=== PATIENT | female | born 1945 | race Caucasian/White ===

== ENCOUNTER 2021-09-25 16:32 | Inpatient (IN) | payer MEDICARE ==
[2021-09-25 16:59] LABS: Hemoglobin 14.3 g/dL (12.0-16.0); Mean Corpuscular Hemoglobin 30.5 pg (27.0-31.0); Mean Corpuscular Volume 95.3 fL (78.0-98.0); Mean Platelet Volume 6.7 fL (7.4-10.4); Platelet Count 273 thou/uL (130-400); RBC Distribution Width 13.3 % (11.5-14.5); White Blood Cell (WBC) Count 5.8 thou/uL (4.8-10.8)
[2021-09-25] MEDS ORDERED: Fentanyl 100 MCG/2 ML VIAL ONE (17:09)
[2021-09-25] MEDS ORDERED: Lorazepam 2 MG/ML VIAL ONE (17:09)
[2021-09-25 17:11] LABS: Actual Bicarbonate (HCO3a) 12.5 mEq/L (22-28); Analyzer IN Cardio ER; Base Excess (BEa) -13.1 mEq/L (-2.0 to +3.0); CO2 Tension 28.9 mmHg (35.0-45.0); Calcium, Ionized (arterial) 1.16 mmol/L (1.12-1.30); Carboxyhemoglobin (COHb) 0.2 gm% (0.0-3.0); Hemoglobin (Hb) 14.1 g/dL (12.0-16.0); O2 Tension (PaO2), arterial 355.5 mmHg (> 70.0); Potassium - ABG Lab 3.81 mmol/L (3.70-5.30)
[2021-09-25 17:12] LABS: ALV-art Gradient 321.375 mmHg (0-20); Puncture Site RRA; pH, Arterial 7.25 (7.35-7.45)
[2021-09-25 17:15] LABS: Band 25 % (5-11); Lymphocytes 16 % (21-51); MDiff Complete? YES; Metamyelocyte 1 % (0-0); Monocytes 25 % (0-10); Neutrophil 29 % (42-75); Platelet Morphology Comment Appears Adequate; Polychromasia SLIGHT = 2-3 cells (100X) (0-2/hpf); Reactive Lymphocytes 4 % (0-10)
[2021-09-25 17:19] LABS: Acetaminophen Less than 6.0 mcg/mL (10.0-30.0); Alcohol Less than 10 mg/dL (Less than 10); Salicylate Less than 8.0 mg/dL (15.0-30.0)
[2021-09-25 17:22] LABS: ALT (SGPT) 32 U/L (8-55); AST (SGOT) 80 U/L (5-34); Albumin 3.6 g/dL (3.4-4.8); Alkaline Phosphatase 56 U/L (40-110); Anion Gap 24 mmol/L (10-20); BUN (Urea Nitrogen) 37 mg/dL (9.8-20.1); Bilirubin, Total 0.6 mg/dL (0.2-1.2); Calc. Creatinine Clearance 0 mL/min (70-130); Calcium 9.3 mg/dL (7.8-10.44); Carbon Dioxide 17 mmol/L (23-31); Chloride 104 mmol/L (98-107); Globulin 2.7 g/dL (2.4-3.5); Glucose 164 mg/dL (83-110); Lipase 8 U/L (8-78); Potassium 4.7 mmol/L (3.5-5.1); Protein, Total 6.3 g/dL (5.8-8.1); Sodium 140 mmol/L (136-145)
[2021-09-25 17:32] LABS: Bilirubin 1+ (Negative); Blood, Urine Negative (Negative); Clarity Turbid (Clear); Glucose, Urine (Dipstick) 30 mg/dL (Negative); Ketone, Urine Negative (Negative); Leukocyte Negative Leu/uL (Negative); Nitrite Negative (Negative); Protein, Urine (Dipstick) 100 mg/dL (Neg-Trace); Specific Gravity, Urine 1.021 (1.002-1.036); Squamous Epithelial 0-3 HPF (0-3)
[2021-09-25 17:36] LABS: Amphetamine Not Detected (NotDetected); Barbiturates Screen Not Detected (NotDetected); Benzodiazepine Screen Not Detected (NotDetected); Cocaine Metabolite Screen Not Detected (NotDetected); Methadone Not Detected (NotDetected); Methamphetamine Not Detected (NotDetected); Opiate Screen Not Detected (NotDetected); Oxycodone Screen Not Detected (NotDetected); Phencyclidine (PCP) Not Detected (NotDetected); THC/Cannabinoid Screen Not Detected (NotDetected); Tricyclic Screen Not Detected (NotDetected)
[2021-09-25] MEDS ORDERED: Fentanyl CADD 100 ML IV SCH (17:45)
[2021-09-25] MEDS ORDERED: Vancomycin 1 GM/200 ML BAG ONE (17:48)
[2021-09-25 17:58] LABS: CKMB 10.9 ng/mL (0-6.6)
[2021-09-25 18:00] LABS: Bacteria/HPF 1+ HPF (None Seen)
[2021-09-25 18:03] LABS: Renal Epithelial 0-3 HPF (None Seen)
[2021-09-25] MEDS ORDERED: Cefepime 2 GM VIAL ONE (18:06)
[2021-09-25] MEDS ORDERED: Ventilator Sedation Protocol 1 EACH FS SCH (18:45)
[2021-09-25 19:12] LABS: SARS-CoV-2 NAA Rapid Test Not Detected (NotDetected)
[2021-09-25] MEDS ORDERED: Propofol BOLUS 1,000 MG/100 ML VIAL IV PRN (19:30)
[2021-09-25] MEDS ORDERED: DISCONTINUE PREVIOUS NARCOTIC PAIN MEDICATIONS AND BENZODIAZEPINES FS SCH (19:30)
[2021-09-25] MEDS ORDERED: Dextrose 50% Abboject 50 ML SYRINGE IVP PRN (19:30)
[2021-09-25] MEDS ORDERED: Dextrose 5% in Water 1,000 ML IV PRN (19:30)
[2021-09-25] MEDS ORDERED: Morphine 2 MG/ML VIAL SLOW IVP PRN (19:30)
[2021-09-25] MEDS ORDERED: Fentanyl BOLUS 250 ML IVPB PRN (19:30)
[2021-09-25 20:05] LABS: Troponin I 0.046 ng/mL (< 0.028)
[2021-09-25] MEDS: Propofol 1,000 MG/100 ML VIAL IV PRN (20:49)
[2021-09-25] MEDS: Atorvastatin Calcium 40 MG TAB PO SCH ×2 (20:50→21:24)
[2021-09-26 00:01] LABS: Troponin I 0.046 ng/mL (< 0.028)
[2021-09-26] MEDS: Lorazepam 2 MG/ML VIAL SLOW IVP PRN (01:29)
[2021-09-26] MEDS ORDERED: Norepinephrine 8 MG/0.9% NS 250 ML IVPB SCH (02:30)
[2021-09-26] MEDS ORDERED: Sodium Chloride 0.9% 500 ML IV SCH (02:30)
[2021-09-26 04:41] LABS: Band 37 % (5-11); Hemoglobin 11.5 g/dL (12.0-16.0); Lymphocytes 20 % (21-51); MDiff Complete? YES; Mean Corpuscular Hemoglobin 30.8 pg (27.0-31.0); Mean Corpuscular Volume 96.2 fL (78.0-98.0); Monocytes 9 % (0-10); Neutrophil 34 % (42-75); Platelet Count 190 thou/uL (130-400); RBC Distribution Width 13.3 % (11.5-14.5); Red Blood Cell (RBC) Count 3.73 mill/uL (4.20-5.40); White Blood Cell (WBC) Count 7.1 thou/uL (4.8-10.8)
[2021-09-26 05:39] LABS: Actual Bicarbonate (HCO3a) 10.9 mEq/L (22-28); Base Excess (BEa) -14.3 mEq/L (-2.0 to +3.0); Calcium, Ionized (arterial) 1.12 mmol/L (1.12-1.30); Carboxyhemoglobin (COHb) 0.1 gm% (0.0-3.0); Hemoglobin (Hb) 11.7 g/dL (12.0-16.0); O2 Tension (PaO2), arterial 128.3 mmHg (> 70.0); Potassium - ABG Lab 4.34 mmol/L (3.70-5.30); pH, Arterial 7.27 (7.35-7.45)
[2021-09-26 05:44] LABS: CO2 Tension 24.5 mmHg (35.0-45.0)
[2021-09-26 05:45] LABS: ALV-art Gradient 126.275 mmHg (0-20); Puncture Site RBA
[2021-09-26] MEDS: Insulin Regular 300 UNITS/3 ML VIAL SC PRN (05:45)
[2021-09-26 06:45] LABS: ALT (SGPT) 25 U/L (8-55); AST (SGOT) 51 U/L (5-34); Albumin 2.9 g/dL (3.4-4.8); Alkaline Phosphatase 52 U/L (40-110); Anion Gap 25 mmol/L (10-20); BUN (Urea Nitrogen) 41 mg/dL (9.8-20.1); Bilirubin, Total 0.5 mg/dL (0.2-1.2); Calc. Creatinine Clearance 36 mL/min (70-130); Carbon Dioxide 11 mmol/L (23-31); Chloride 106 mmol/L (98-107); Globulin 2.9 g/dL (2.4-3.5); Glucose 226 mg/dL (83-110); Potassium 4.3 mmol/L (3.5-5.1); Protein, Total 5.8 g/dL (5.8-8.1); Sodium 138 mmol/L (136-145)
[2021-09-26] MEDS: Aspirin 81 mg Enteric Coated Tablet PO SCH (09:07)
[2021-09-26] MEDS: cefTRIAXone\\ROCEPHIN 2 GM in Sodium Chloride 0.9% 100 ML IVPB SCH (10:13)
[2021-09-26] MEDS ORDERED: Fentanyl 100 MCG/2 ML VIAL ONE (13:04)
[2021-09-26] MEDS ORDERED: Midazolam HCl 2 mg/2 ml Vial ONE (13:04)
[2021-09-26] MEDS ORDERED: PROPOFOL 0 ML ONE (13:08)
[2021-09-26] MEDS ORDERED: Rocuronium Bromide 10 MG/ML (10ML VIAL) ONE (13:29)
[2021-09-26] MEDS ORDERED: EPINEPHrine 1 MG/ML AMP ONE (13:38)
[2021-09-26] MEDS: Sodium Chloride 0.9% 1,000 ML IV SCH (14:30)
[2021-09-26] MEDS: Acetaminophen 325 MG TAB PO PRN (15:30)
[2021-09-26] MEDS ORDERED: Fentanyl CADD 100 ML ONE (17:34)
[2021-09-26] MEDS: Atorvastatin Calcium 40 MG TAB PO SCH (22:00)
[2021-09-27] MEDS: Sodium Chloride 0.9% 1,000 ML IV SCH ×2 (00:01→10:20)
[2021-09-27 04:24] LABS: ALT (SGPT) 22 U/L (8-55); AST (SGOT) 49 U/L (5-34); Albumin 2.4 g/dL (3.4-4.8); Alkaline Phosphatase 56 U/L (40-110); Anion Gap 22 mmol/L (10-20); BUN (Urea Nitrogen) 32 mg/dL (9.8-20.1); Bilirubin, Total 0.2 mg/dL (0.2-1.2); Calc. Creatinine Clearance 52 mL/min (70-130); Calcium 8.2 mg/dL (7.8-10.44); Carbon Dioxide 13 mmol/L (23-31); Chloride 111 mmol/L (98-107); Globulin 3.2 g/dL (2.4-3.5); Glucose 138 mg/dL (83-110); Potassium 4.8 mmol/L (3.5-5.1); Protein, Total 5.6 g/dL (5.8-8.1); Sodium 141 mmol/L (136-145)
[2021-09-27 04:48] LABS: Band 39 % (5-11); Eosinophils 1 % (0-10); Hemoglobin 10.3 g/dL (12.0-16.0); Lymphocytes 7 % (21-51); MDiff Complete? YES; Mean Corpuscular Hemoglobin 30.5 pg (27.0-31.0); Mean Corpuscular Volume 95.5 fL (78.0-98.0); Mean Platelet Volume 6.1 fL (7.4-10.4); Monocytes 7 % (0-10); Myelocyte 1 % (0-0); Neutrophil 45 % (42-75); Platelet Count 189 thou/uL (130-400); RBC Distribution Width 13.4 % (11.5-14.5); Red Blood Cell (RBC) Count 3.36 mill/uL (4.20-5.40)
[2021-09-27] MEDS: Aspirin 81 mg Enteric Coated Tablet PO SCH (08:59)
[2021-09-27] MEDS ORDERED: Pantoprazole 40 MG VIAL IVP SCH (09:00)
[2021-09-27] MEDS: cefTRIAXone\\ROCEPHIN 2 GM in Sodium Chloride 0.9% 100 ML IVPB SCH (09:10)
[2021-09-27] MEDS: methylPREDNISolone Sod Succ 40 MG VIAL IVP SCH (18:11)
[2021-09-27] MEDS: Atorvastatin Calcium 40 MG TAB PO SCH (21:35)
[2021-09-27] MEDS: Insulin Regular 300 UNITS/3 ML VIAL SC PRN (21:46)
[2021-09-27] MEDS: Lorazepam 2 MG/ML VIAL SLOW IVP PRN (22:48)
[2021-09-28] MEDS: methylPREDNISolone Sod Succ 40 MG VIAL IVP SCH ×5 (00:11→23:20)
[2021-09-28] MEDS: Lorazepam 2 MG/ML VIAL SLOW IVP PRN ×2 (00:47→23:20)
[2021-09-28] MEDS: Insulin Regular 300 UNITS/3 ML VIAL SC PRN ×4 (03:25→21:55)
[2021-09-28 04:10] LABS: Band 12 % (5-11); Hemoglobin 10.6 g/dL (12.0-16.0); Lymphocytes 4 % (21-51); MDiff Complete? YES; Mean Corpuscular HGB CONC 32.6 g/dL (32.0-36.0); Mean Corpuscular Hemoglobin 30.7 pg (27.0-31.0); Mean Corpuscular Volume 94.4 fL (78.0-98.0); Mean Platelet Volume 6.2 fL (7.4-10.4); Metamyelocyte 2 % (0-0); Monocytes 1 % (0-10); Myelocyte 7 % (0-0); Neutrophil 73 % (42-75); Platelet Count 216 thou/uL (130-400); Platelet Morphology Comment Appears Adequate; RBC Distribution Width 13.4 % (11.5-14.5); RBC Morphology Normal; Reactive Lymphocytes 1 % (0-10); Red Blood Cell (RBC) Count 3.44 mill/uL (4.20-5.40); White Blood Cell (WBC) Count 6.1 thou/uL (4.8-10.8)
[2021-09-28 04:24] LABS: ALT (SGPT) 21 U/L (8-55); AST (SGOT) 25 U/L (5-34); Albumin 2.6 g/dL (3.4-4.8); Alkaline Phosphatase 66 U/L (40-110); Anion Gap 19 mmol/L (10-20); BUN (Urea Nitrogen) 25 mg/dL (9.8-20.1); Bilirubin, Total 0.2 mg/dL (0.2-1.2); Calc. Creatinine Clearance 53 mL/min (70-130); Calcium 8.5 mg/dL (7.8-10.44); Carbon Dioxide 16 mmol/L (23-31); Chloride 113 mmol/L (98-107); Globulin 2.8 g/dL (2.4-3.5); Glucose 251 mg/dL (83-110); Potassium 4.3 mmol/L (3.5-5.1); Protein, Total 5.4 g/dL (5.8-8.1); Sodium 144 mmol/L (136-145)
[2021-09-28] MEDS: Pantoprazole 40 MG GRANULES PACKET PER TUBE SCH (09:01)
[2021-09-28] MEDS: Aspirin Chewable 81 MG TAB PO SCH (09:01)
[2021-09-28] MEDS: cefTRIAXone\\ROCEPHIN 2 GM in Sodium Chloride 0.9% 100 ML IVPB SCH (09:48)
[2021-09-28] MEDS: Atorvastatin Calcium 40 MG TAB PO SCH (21:54)
[2021-09-29] MEDS: Insulin Regular 300 UNITS/3 ML VIAL SC PRN ×4 (03:53→20:55)
[2021-09-29 04:11] LABS: Band 2 % (5-11); Hemoglobin 10.8 g/dL (12.0-16.0); Hypochromia SLIGHT = 6-15 cells (100X) (0-5/hpf); Lymphocytes 14 % (21-51); MDiff Complete? YES; Mean Corpuscular HGB CONC 33.6 g/dL (32.0-36.0); Mean Corpuscular Hemoglobin 31.1 pg (27.0-31.0); Mean Corpuscular Volume 92.6 fL (78.0-98.0); Mean Platelet Volume 6.1 fL (7.4-10.4); Monocytes 9 % (0-10); Neutrophil 75 % (42-75); Platelet Count 254 thou/uL (130-400); Platelet Morphology Comment Appears Adequate; RBC Distribution Width 13.5 % (11.5-14.5); Red Blood Cell (RBC) Count 3.49 mill/uL (4.20-5.40)
[2021-09-29 04:20] LABS: ALT (SGPT) 24 U/L (8-55); AST (SGOT) 25 U/L (5-34); Albumin 2.8 g/dL (3.4-4.8); Alkaline Phosphatase 92 U/L (40-110); Anion Gap 15 mmol/L (10-20); BUN (Urea Nitrogen) 40 mg/dL (9.8-20.1); Bilirubin, Total 0.3 mg/dL (0.2-1.2); Calc. Creatinine Clearance 43 mL/min (70-130); Calcium 9.1 mg/dL (7.8-10.44); Carbon Dioxide 23 mmol/L (23-31); Chloride 114 mmol/L (98-107); Globulin 2.9 g/dL (2.4-3.5); Glucose 354 mg/dL (83-110); Potassium 4.4 mmol/L (3.5-5.1); Protein, Total 5.7 g/dL (5.8-8.1); Sodium 148 mmol/L (136-145)
[2021-09-29] MEDS: methylPREDNISolone Sod Succ 40 MG VIAL IVP SCH ×2 (05:41→12:18)
[2021-09-29] MEDS: cefTRIAXone\\ROCEPHIN 2 GM in Sodium Chloride 0.9% 100 ML IVPB SCH (10:03)
[2021-09-29] MEDS: Pantoprazole 40 MG GRANULES PACKET PER TUBE SCH (10:03)
[2021-09-29] MEDS: Aspirin Chewable 81 MG TAB PO SCH (10:03)
[2021-09-29] MEDS: Atorvastatin Calcium 40 MG TAB PO SCH (20:54)
[2021-09-29] MEDS: Lantus 1000 UNITS/10 ML VIAL SC SCH (20:55)
[2021-09-29] MEDS: Acetaminophen 325 MG TAB PO PRN (20:56)
[2021-09-30] MEDS: Acetaminophen 325 MG TAB PO PRN ×3 (02:22→21:05)
[2021-09-30] MEDS: Insulin Regular 300 UNITS/3 ML VIAL SC PRN ×4 (04:08→21:08)
[2021-09-30 04:39] LABS: ALT (SGPT) 30 U/L (8-55); AST (SGOT) 33 U/L (5-34); Albumin 3.1 g/dL (3.4-4.8); Alkaline Phosphatase 92 U/L (40-110); Anion Gap 12 mmol/L (10-20); BUN (Urea Nitrogen) 38 mg/dL (9.8-20.1); Bilirubin, Total 0.4 mg/dL (0.2-1.2); Calc. Creatinine Clearance 57 mL/min (70-130); Calcium 9.3 mg/dL (7.8-10.44); Carbon Dioxide 30 mmol/L (23-31); Chloride 111 mmol/L (98-107); Globulin 2.7 g/dL (2.4-3.5); Glucose 215 mg/dL (83-110); Potassium 3.7 mmol/L (3.5-5.1); Protein, Total 5.8 g/dL (5.8-8.1); Sodium 149 mmol/L (136-145)
[2021-09-30 05:40] LABS: Band 15 % (5-11); Hemoglobin 10.6 g/dL (12.0-16.0); Lymphocytes 2 % (21-51); MDiff Complete? YES; Mean Corpuscular Hemoglobin 30.6 pg (27.0-31.0); Mean Corpuscular Volume 92.8 fL (78.0-98.0); Mean Platelet Volume 6.1 fL (7.4-10.4); Metamyelocyte 5 % (0-0); Monocytes 11 % (0-10); Myelocyte 5 % (0-0); Neutrophil 62 % (42-75); Platelet Count 275 thou/uL (130-400); Platelet Morphology Comment Appears Adequate; RBC Distribution Width 13.4 % (11.5-14.5); RBC Morphology Normal; Red Blood Cell (RBC) Count 3.47 mill/uL (4.20-5.40); White Blood Cell (WBC) Count 12.9 thou/uL (4.8-10.8)
[2021-09-30] MEDS: Aspirin Chewable 81 MG TAB PO SCH (09:45)
[2021-09-30] MEDS: cefTRIAXone\\ROCEPHIN 2 GM in Sodium Chloride 0.9% 100 ML IVPB SCH (09:45)
[2021-09-30] MEDS: Pantoprazole 40 MG GRANULES PACKET PER TUBE SCH (09:45)
[2021-09-30] MEDS: Atorvastatin Calcium 40 MG TAB PO SCH (21:05)
[2021-09-30] MEDS: Lantus 1000 UNITS/10 ML VIAL SC SCH (21:06)
[2021-10-01] MEDS: Insulin Regular 300 UNITS/3 ML VIAL SC PRN ×4 (03:15→20:44)
[2021-10-01 04:28] LABS: ALT (SGPT) 26 U/L (8-55); AST (SGOT) 33 U/L (5-34); Albumin 2.8 g/dL (3.4-4.8); Alkaline Phosphatase 104 U/L (40-110); Anion Gap 10 mmol/L (10-20); BUN (Urea Nitrogen) 31 mg/dL (9.8-20.1); Bilirubin, Total 0.4 mg/dL (0.2-1.2); Calc. Creatinine Clearance 67 mL/min (70-130); Calcium 8.9 mg/dL (7.8-10.44); Carbon Dioxide 33 mmol/L (23-31); Chloride 107 mmol/L (98-107); Globulin 2.5 g/dL (2.4-3.5); Glucose 191 mg/dL (83-110); Potassium 3.3 mmol/L (3.5-5.1); Protein, Total 5.3 g/dL (5.8-8.1); Sodium 147 mmol/L (136-145)
[2021-10-01] MEDS: Aspirin Chewable 81 MG TAB PO SCH (09:07)
[2021-10-01] MEDS: cefTRIAXone\\ROCEPHIN 2 GM in Sodium Chloride 0.9% 100 ML IVPB SCH (09:07)
[2021-10-01] MEDS: Pantoprazole 40 MG GRANULES PACKET PER TUBE SCH (09:07)
[2021-10-01] MEDS: Propofol 1,000 MG/100 ML VIAL IV PRN (11:32)
[2021-10-01 12:32] LABS: Hemoglobin 10.4 g/dL (12.0-16.0); Red Blood Cell (RBC) Count 3.49 mill/uL (4.20-5.40); White Blood Cell (WBC) Count 10.2 thou/uL (4.8-10.8)
[2021-10-01 12:33] LABS: Band 4 % (5-11); Lymphocytes 21 % (21-51); Mean Corpuscular Hemoglobin 29.7 pg (27.0-31.0); Mean Corpuscular Volume 92.7 fL (78.0-98.0); Mean Platelet Volume 6.3 fL (7.4-10.4); Neutrophil 60 % (42-75); Platelet Count 220 thou/uL (130-400); RBC Distribution Width 13.3 % (11.5-14.5)
[2021-10-01 12:34] LABS: Monocytes 15 % (0-10)
[2021-10-01 12:35] LABS: MDiff Complete? YES
[2021-10-01] MEDS ORDERED: Lantus 1000 UNITS/10 ML VIAL SC SCH (13:37)
[2021-10-01] MEDS: Clindamycin/D5W 600 MG in Premix Bag 1 BAG IVPB SCH ×2 (16:59→21:23)
[2021-10-01] MEDS: Atorvastatin Calcium 40 MG TAB PO SCH (20:45)
[2021-10-02] MEDS ORDERED: Morphine 4 MG/ML VIAL SLOW IVP PRN (01:07)
[2021-10-02] MEDS: Clindamycin/D5W 600 MG in Premix Bag 1 BAG IVPB SCH ×4 (03:08→20:37)
[2021-10-02 04:54] LABS: ALT (SGPT) 24 U/L (8-55); AST (SGOT) 25 U/L (5-34); Albumin 2.7 g/dL (3.4-4.8); Alkaline Phosphatase 107 U/L (40-110); Anion Gap 12 mmol/L (10-20); BUN (Urea Nitrogen) 31 mg/dL (9.8-20.1); Bilirubin, Total 0.4 mg/dL (0.2-1.2); Calc. Creatinine Clearance 61 mL/min (70-130); Calcium 8.4 mg/dL (7.8-10.44); Carbon Dioxide 29 mmol/L (23-31); Chloride 108 mmol/L (98-107); Globulin 2.6 g/dL (2.4-3.5); Glucose 257 mg/dL (83-110); Magnesium 1.9 mg/dL (1.6-2.6); Potassium 3.3 mmol/L (3.5-5.1); Protein, Total 5.3 g/dL (5.8-8.1); Sodium 146 mmol/L (136-145)
[2021-10-02] MEDS: Insulin Regular 300 UNITS/3 ML VIAL SC PRN ×3 (04:59→20:41)
[2021-10-02] MEDS: Levothyroxine Sodium 112 MCG TAB PO SCH (04:59)
[2021-10-02 05:04] LABS: Band 10 % (5-11); Hypochromia SLIGHT = 6-15 cells (100X) (0-5/hpf); Lymphocytes 18 % (21-51); MDiff Complete? YES; Mean Corpuscular HGB CONC 31.7 g/dL (32.0-36.0); Mean Corpuscular Hemoglobin 29.6 pg (27.0-31.0); Mean Corpuscular Volume 93.2 fL (78.0-98.0); Mean Platelet Volume 6.7 fL (7.4-10.4); Metamyelocyte 3 % (0-0); Monocytes 3 % (0-10); Myelocyte 3 % (0-0); Neutrophil 62 % (42-75); Platelet Count 219 thou/uL (130-400); Platelet Morphology Comment Appears Adequate; RBC Distribution Width 13.1 % (11.5-14.5); Reactive Lymphocytes 1 % (0-10); Red Blood Cell (RBC) Count 3.38 mill/uL (4.20-5.40); White Blood Cell (WBC) Count 9.5 thou/uL (4.8-10.8)
[2021-10-02 07:36] LABS: Actual Bicarbonate (HCO3a) 27.2 mEq/L (22-28); Base Excess (BEa) 5.5 mEq/L (-2.0 to +3.0); CO2 Tension 29.9 mmHg (35.0-45.0); Calcium, Ionized (arterial) 1.12 mmol/L (1.12-1.30); Carboxyhemoglobin (COHb) 0.3 gm% (0.0-3.0); Hemoglobin (Hb) 10.4 g/dL (12.0-16.0); Potassium - ABG Lab 3.32 mmol/L (3.70-5.30)
[2021-10-02 07:37] LABS: ALV-art Gradient 146.825 mmHg (0-20); Puncture Site RRA; pH, Arterial 7.58 (7.35-7.45)
[2021-10-02] MEDS: cefTRIAXone\\ROCEPHIN 2 GM in Sodium Chloride 0.9% 100 ML IVPB SCH (10:07)
[2021-10-02] MEDS: Aspirin Chewable 81 MG TAB PO SCH (10:08)
[2021-10-02] MEDS: Pantoprazole 40 MG GRANULES PACKET PER TUBE SCH (10:08)
[2021-10-02] MEDS: NPH, Human Insulin Isophane 300 UNIT/3 ML VIAL SC SCH ×2 (10:15→20:37)
[2021-10-02] MEDS: Atorvastatin Calcium 40 MG TAB PO SCH (20:37)
[2021-10-03] MEDS: Clindamycin/D5W 600 MG in Premix Bag 1 BAG IVPB SCH ×4 (02:59→20:57)
[2021-10-03] MEDS ORDERED: Scopolamine 1.5 mg/72 hour Patch TD SCH (03:00)
[2021-10-03] MEDS: Levothyroxine Sodium 112 MCG TAB PO SCH (04:54)
[2021-10-03] MEDS: Insulin Regular 300 UNITS/3 ML VIAL SC PRN (06:22)
[2021-10-03 07:25] LABS: Hemoglobin 10.2 g/dL (12.0-16.0); Mean Corpuscular HGB CONC 33.4 g/dL (32.0-36.0); Mean Corpuscular Hemoglobin 30.7 pg (27.0-31.0); Mean Corpuscular Volume 91.7 fL (78.0-98.0); Platelet Count 235 thou/uL (130-400); RBC Distribution Width 13.2 % (11.5-14.5); Red Blood Cell (RBC) Count 3.32 mill/uL (4.20-5.40); White Blood Cell (WBC) Count 11.3 thou/uL (4.8-10.8)
[2021-10-03 07:45] LABS: ALT (SGPT) 22 U/L (8-55); AST (SGOT) 26 U/L (5-34); Albumin 2.6 g/dL (3.4-4.8); Alkaline Phosphatase 105 U/L (40-110); Anion Gap 11 mmol/L (10-20); BUN (Urea Nitrogen) 35 mg/dL (9.8-20.1); Bilirubin, Total 0.3 mg/dL (0.2-1.2); Calc. Creatinine Clearance 64 mL/min (70-130); Calcium 8.5 mg/dL (7.8-10.44); Carbon Dioxide 29 mmol/L (23-31); Chloride 109 mmol/L (98-107); Globulin 2.6 g/dL (2.4-3.5); Glucose 158 mg/dL (83-110); Potassium 3.3 mmol/L (3.5-5.1); Protein, Total 5.2 g/dL (5.8-8.1); Sodium 146 mmol/L (136-145)
[2021-10-03] MEDS: Pantoprazole 40 MG GRANULES PACKET PER TUBE SCH (08:00)
[2021-10-03] MEDS: Aspirin Chewable 81 MG TAB PO SCH (08:00)
[2021-10-03] MEDS: NPH, Human Insulin Isophane 300 UNIT/3 ML VIAL SC SCH ×2 (08:00→20:57)
[2021-10-03 08:10] LABS: Band 12 % (5-11); Eosinophils 1 % (0-10); Lymphocytes 11 % (21-51); MDiff Complete? YES; Monocytes 2 % (0-10); Myelocyte 3 % (0-0); Neutrophil 70 % (42-75); Platelet Morphology Comment Appears Adequate; Polychromasia SLIGHT = 2-3 cells (100X) (0-2/hpf); Reactive Lymphocytes 1 % (0-10)
[2021-10-03] MEDS: cefTRIAXone\\ROCEPHIN 2 GM in Sodium Chloride 0.9% 100 ML IVPB SCH (08:41)
[2021-10-03 11:42] VITALS: BMI 25.7
[2021-10-03 15:16] LABS: SARS-CoV-2 PCR by NAA Not Detected (NotDetected)
[2021-10-03] MEDS: Atorvastatin Calcium 40 MG TAB PO SCH (20:25)
[2021-10-04] MEDS: Clindamycin/D5W 600 MG in Premix Bag 1 BAG IVPB SCH (04:09)
[2021-10-04] MEDS: Levothyroxine Sodium 112 MCG TAB PO SCH (05:06)
[2021-10-04] MEDS: Insulin Regular 300 UNITS/3 ML VIAL SC PRN (05:07)
[2021-10-04] MEDS ORDERED: Lorazepam 2 MG/ML VIAL SLOW IVP PRN (07:49)
[2021-10-04] MEDS ORDERED: Morphine 4 MG/ML VIAL SLOW IVP PRN (07:49)
[2021-10-04 11:10] VITALS: BP 108/62
[2021-10-04] MEDS: NPH, Human Insulin Isophane 300 UNIT/3 ML VIAL SC SCH (11:25)
[2021-10-04] MEDS: cefTRIAXone\\ROCEPHIN 2 GM in Sodium Chloride 0.9% 100 ML IVPB SCH (11:25)
[2021-10-04] MEDS: Aspirin Chewable 81 MG TAB PO SCH (11:25)
[2021-10-04] MEDS: Pantoprazole 40 MG GRANULES PACKET PER TUBE SCH (11:25)
[2021-10-04 12:05] VITALS: TEMP 98.5
== END 2021-10-04 12:07 | disposition hospice, inpatient (51) | DRG 207 ==
LOC: ERS 16:32 → EDBD 16:32 → CCU 16:47
PROVIDERS: ADMIT Internal Medicine; ATTEND Internal Medicine
PROC: 5A1955Z Respiratory Ventilation, Greater than 96 Consecutive Hours (ICD-10-PCS; principal; 2021-09-25)
PROC: 0D9670Z Drainage of Stomach with Drainage Device, Via Natural or Artificial Opening (ICD-10-PCS; 2021-09-25)
PROC: 0BH18EZ Insertion of Endotracheal Airway into Trachea, Via Natural or Artificial Opening Endoscopic (ICD-10-PCS; 2021-09-25)
PROC: 0CCM8ZZ Extirpation of Matter from Pharynx, Via Natural or Artificial Opening Endoscopic (ICD-10-PCS; 2021-09-27)
PROC: 0CJS8ZZ Inspection of Larynx, Via Natural or Artificial Opening Endoscopic (ICD-10-PCS; 2021-09-27)
DX: J96.01 Acute respiratory failure with hypoxia (principal); J69.8 Pneumonitis due to inhalation of other solids and liquids; A41.9 Sepsis, unspecified organism; N17.9 Acute kidney failure, unspecified; S11.22XA Laceration with foreign body of pharynx and cervical esophagus, initial encounter; G93.49 Other encephalopathy; E46 Unspecified protein-calorie malnutrition; E87.3 Alkalosis; G93.1 Anoxic brain damage, not elsewhere classified; T17.290A Other foreign object in pharynx causing asphyxiation, initial encounter; J96.02 Acute respiratory failure with hypercapnia; Z20.822 Contact with and (suspected) exposure to COVID-19; Z66 Do not resuscitate; Z51.5 Encounter for palliative care; E03.9 Hypothyroidism, unspecified; I11.0 Hypertensive heart disease with heart failure; I50.9 Heart failure, unspecified; E78.5 Hyperlipidemia, unspecified; I48.91 Unspecified atrial fibrillation; D64.9 Anemia, unspecified; I25.10 Atherosclerotic heart disease of native coronary artery without angina pectoris; E11.65 Type 2 diabetes mellitus with hyperglycemia; Z78.1 Physical restraint status; Z90.710 Acquired absence of both cervix and uterus; Z87.11 Personal history of peptic ulcer disease; Z79.4 Long term (current) use of insulin; Z90.89 Acquired absence of other organs; Z95.818 Presence of other cardiac implants and grafts; Z87.891 Personal history of nicotine dependence; Z68.25 Body mass index [BMI] 25.0-25.9, adult; Z88.0 Allergy status to penicillin
CPT/HCPCS: 36415; 36416; 36556; 36600; 51702; 70450; 70551; 71045; 80053; 80306; 80307; 81003; 81015; 82140; 82533; 82550; 82553; 82805; 83605; 83690; 83735; 83880; 84100; 84484; 85007; 85025; 85027; 87040; 87086; 87149; 93005; 94002; 94003; 95816; 95819; 95957; 96365; 96368; 96376; 99292; C9113; J0171; J0692; J0696; J1815; J2060; J2250; J2270; J2704; J2920; J3010; J3370; J3490; J7030; J7050; U0002; U0003; U0005

== ENCOUNTER 2021-10-04 12:54 | Inpatient (IN) | payer OTHER ==
[2021-10-04] MEDS ORDERED: Acetaminophen 325 MG TAB PO PRN (13:15)
[2021-10-04] MEDS ORDERED: Zolpidem Tartrate 5 MG TAB PO PRN (13:15)
[2021-10-04] MEDS ORDERED: diphenhydrAMINE 25 MG CAP PO PRN (13:15)
[2021-10-04] MEDS ORDERED: Morphine 10 MG/0.5 ML ORAL SYRINGE SL PRN (13:15)
[2021-10-04] MEDS ORDERED: Promethazine HCl 25 MG SUPP PR PRN (13:15)
[2021-10-04] MEDS ORDERED: Morphine 4 MG/ML VIAL ONE (13:15)
[2021-10-04] MEDS ORDERED: chlorproMAZINE HCl 25 MG in Sodium Chloride 0.9% 50 ML IVPB PRN (13:15)
[2021-10-04] MEDS ORDERED: Senokot 8.6 MG TAB PO PRN (13:15)
[2021-10-04] MEDS ORDERED: Loperamide HCl 2 MG CAP PO PRN (13:15)
[2021-10-04] MEDS ORDERED: Ondansetron ODT 4 MG TAB PO PRN (13:15)
[2021-10-04] MEDS: Lorazepam 2 MG/ML VIAL SLOW IVP PRN (13:15)
[2021-10-04] MEDS ORDERED: Haloperidol Lactate 5 MG/ML VIAL SLOW IVP PRN (13:15)
[2021-10-04] MEDS ORDERED: Scopolamine 1.5 mg/72 hour Patch TOP PRN (13:15)
[2021-10-04] MEDS ORDERED: Ondansetron PF 4 MG/2 ML Vial IVP PRN (13:15)
[2021-10-04] MEDS ORDERED: Morphine IR Tab 15 MG TAB PO PRN (13:15)
[2021-10-04] MEDS ORDERED: Acetaminophen 650 MG Suppository PR PRN (13:15)
[2021-10-04] MEDS: Morphine 4 MG/ML VIAL SLOW IVP PRN (13:20)
[2021-10-04] MEDS: Scopolamine 1.5 mg/72 hour Patch TOP PRN (21:06)
[2021-10-05] MEDS: Lorazepam 2 MG/ML VIAL SLOW IVP PRN ×2 (10:55→15:27)
[2021-10-05] MEDS: Morphine 4 MG/ML VIAL SLOW IVP PRN ×2 (10:57→15:27)
[2021-10-06] MEDS: Lorazepam 2 MG/ML VIAL SLOW IVP PRN ×4 (03:11→23:18)
[2021-10-06] MEDS: Morphine 4 MG/ML VIAL SLOW IVP PRN ×5 (03:11→23:18)
[2021-10-07] MEDS: Lorazepam 2 MG/ML VIAL SLOW IVP PRN ×4 (03:57→16:42)
[2021-10-07] MEDS: Morphine 4 MG/ML VIAL SLOW IVP PRN ×5 (03:57→20:12)
[2021-10-08] MEDS: Lorazepam 2 MG/ML VIAL SLOW IVP PRN ×4 (03:12→23:21)
[2021-10-08] MEDS: Morphine 4 MG/ML VIAL SLOW IVP PRN ×5 (03:12→23:21)
[2021-10-08] MEDS: Scopolamine 1.5 mg/72 hour Patch TOP PRN (03:13)
[2021-10-09] MEDS: Morphine 4 MG/ML VIAL SLOW IVP PRN ×5 (03:59→22:05)
[2021-10-09] MEDS: Lorazepam 2 MG/ML VIAL SLOW IVP PRN ×5 (03:59→22:06)
[2021-10-09] MEDS: Hyoscyamine Sulfate SL 0.125 mg Tablet SL PRN (22:04)
[2021-10-10] MEDS: Lorazepam 2 MG/ML VIAL SLOW IVP PRN ×3 (04:25→19:50)
[2021-10-10] MEDS: Morphine 4 MG/ML VIAL SLOW IVP PRN ×5 (04:25→19:49)
[2021-10-10] MEDS: Hyoscyamine Sulfate SL 0.125 mg Tablet SL PRN ×3 (06:05→17:50)
[2021-10-11] MEDS: Morphine 4 MG/ML VIAL SLOW IVP PRN ×4 (02:07→22:37)
[2021-10-11] MEDS: Lorazepam 2 MG/ML VIAL SLOW IVP PRN ×4 (02:07→22:37)
[2021-10-11] MEDS: Hyoscyamine Sulfate SL 0.125 mg Tablet SL PRN ×4 (02:07→21:24)
[2021-10-11] MEDS: Scopolamine 1.5 mg/72 hour Patch TOP PRN (07:34)
[2021-10-12] MEDS: diphenhydrAMINE 50 MG/ML VIAL IVP PRN (00:46)
[2021-10-12] MEDS: Hyoscyamine Sulfate SL 0.125 mg Tablet SL PRN ×4 (03:30→21:41)
[2021-10-12] MEDS: Morphine 4 MG/ML VIAL SLOW IVP PRN ×4 (09:37→21:48)
[2021-10-12] MEDS: Lorazepam 2 MG/ML VIAL SLOW IVP PRN ×3 (09:38→21:53)
[2021-10-13] MEDS: Hyoscyamine Sulfate SL 0.125 mg Tablet SL PRN ×4 (03:39→22:11)
[2021-10-13] MEDS: Morphine 4 MG/ML VIAL SLOW IVP PRN ×6 (03:43→23:00)
[2021-10-13] MEDS: Lorazepam 2 MG/ML VIAL SLOW IVP PRN ×4 (03:45→22:11)
[2021-10-13] MEDS: diphenhydrAMINE 50 MG/ML VIAL IVP PRN (19:51)
[2021-10-14] MEDS: Morphine 4 MG/ML VIAL SLOW IVP PRN ×3 (04:05→09:14)
[2021-10-14] MEDS: Lorazepam 2 MG/ML VIAL SLOW IVP PRN ×2 (04:05→09:15)
[2021-10-14 09:06] VITALS: BP 106/54; TEMP 98.4
== END 2021-10-14 12:29 | disposition expired | DRG 951 ==
LOC: CCU 12:54 → ONC 14:39
PROVIDERS: ADMIT Student in an Organized Health Care Education/Training Program; ATTEND Student in an Organized Health Care Education/Training Program
DX: Z51.5 Encounter for palliative care (principal); J96.01 Acute respiratory failure with hypoxia; J69.0 Pneumonitis due to inhalation of food and vomit; G93.1 Anoxic brain damage, not elsewhere classified; Z66 Do not resuscitate; Z20.822 Contact with and (suspected) exposure to COVID-19; E03.9 Hypothyroidism, unspecified; I48.91 Unspecified atrial fibrillation; E11.9 Type 2 diabetes mellitus without complications; I11.0 Hypertensive heart disease with heart failure; I50.9 Heart failure, unspecified; Z88.0 Allergy status to penicillin; Z79.01 Long term (current) use of anticoagulants; Z79.82 Long term (current) use of aspirin; Z79.899 Other long term (current) drug therapy; Z79.890 Hormone replacement therapy; Z79.4 Long term (current) use of insulin; Z79.84 Long term (current) use of oral hypoglycemic drugs; Z87.891 Personal history of nicotine dependence
CPT/HCPCS: J1200; J2060; J2270